=== PATIENT | male | born 1990 | race Native Hawaiian/Other Pacific Islander ===

== ENCOUNTER 2020-07-06 17:00 | Outpatient (REF) | payer MEDICARE, MEDICAID, SELFPAY | END 2020-07-06 17:01 | disposition home or self-care (01) | LOC: HO.LAB 17:00 | PROVIDERS: PCP Internal Medicine; Visit Provider Internal Medicine | DX: Z20.828 Contact with and (suspected) exposure to other viral communicable diseases (principal) | CPT/HCPCS: 36415; 87635 ==

== ENCOUNTER 2023-11-06 16:24 | Outpatient (AMB) | payer MEDICARE, MEDICAID, SELFPAY ==
[2023-11-06 16:28] VITALS: BP 124/70; PULSE 67; O2SAT 99; BMI 25.4
--- NOTE | 2023-11-06 16:28 | A.OFFPC_ITS ---
Vital Signs 11/06/23 16:28 Height 5 ft 11 in Weight 182 lb BMI 25.4 BP 124/70 Blood Pressure Location Lt brachial Position Sitting Pulse 67 Pulse Source Pulse Oximeter Pulse Oximetry (%) 99 Oxygen Delivery Method Room Air Intake Visit Reasons: office visit/ note Gridcap Machine Operator Required: No Perioperative Manager: Not Required per policy Accompanied by: Self / Same As Patient Allergies No Known Allergies Allergy (Verified 11/06/23 16:28) Tobacco use date assessed: 11/06/23 Dental Screening Dental Screen Date: 11/06/23 Did you have a dental visit in the last 12 months?: Yes Did you have a dental problem in the last 6 months where you did not have access to dental care?: No Was dental information given to patient?: Patient has dentist HPI office visit/ note HPI Details 33-year-old male with a history of polys ubstance abuse generalized an xiety disorder coming in for follow-up. Last seen in December 2022. 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 PAtient is asking for a letter that he can drive a car. has anxiety and expresses no harm to himself. [facility] Medical History (Updated 11/06/23 @ 16:54 by Nieves Colon MD) Hirsutism Seborrheic dermatitis Attention deficit disorder Obsessive compulsive disorder Family History Father No problems noted. Mother No problems noted. Brother No problems noted. Brother No problems noted. Sister No problems noted. Sister No problems noted. Social History Housing: Apartment Alcohol intake: former Patient Tobacco Use Status: Never used Tobacco Years Smoked: smokes marijuana e-Cigarette/Vaping Use: Never Used Second Hand Smoke Exposure: No service: No Current occupational status: employed Cognitive needs: No Hearing needs: No Vision needs: No Questionnaire PHQ-9 Over the last 2 weeks, how often have you been bothered by any of the following problems? 1. Little interest or pleasure in doing things: not at all 2. Feeling down, depressed, or hopeless: not at all 3. Trouble falling or staying asleep, or sleeping too much: not at all 4. Feeling tired or having little energy: not at all 5. Poor appetite or overeating: not at all 6. Feeling bad about yourself - or that you are a failure or have let yourself or your family down: not at all 7. Trouble concentrating on things, such as reading the newspaper or watching television: not at all 8. Moving or speaking so slowly that other people could have noticed. Or the opposite - being so fidgety or restless that you have been moving around a lot more than usual: not at all 9. Thoughts that you would be better off or of hurting yourself in some way: not at all Total score: 0 Depression Screening Interpretation: Negative Depression Screening Done: Yes Source: Developed by Drs. Anselmo Church, Jihan Longo, Blu Andrews and colleagues, with an educational teresa from [employer]. Thrive Questionnaire Date Thrive assessed: 11/06/23 I am a: Patient What is your living situation today?: I have a steady place to live Within the past 12 months, did the food you bought not last and you didn't have the money to get more?: Never true Within the past 12 months, did you worry whether your food would run out before you got money to buy more?: Never true Do you have trouble paying for medicines?: No Do you have trouble getting transportation to medical appointments?: No Do you have trouble paying your heating and electricity bill?: No Do you have trouble taking care of your child, family member or friend?: No Do you have trouble with day-to-day activities such as bathing, preparing meals, shopping, managing finances, etc.?: No Are you currently unemployed and looking for a job?: No Are you interested in more education?: No Please select the resources that you would like help with: None THRIVE Score: 0 AUDIT C Alcohol Use Questionnaire (AUDIT-C) 1. How often do you have a drink containing alcohol?: Never 2. How many drinks containing alcohol do you have on a typical day when you are drinking?: 1 or 2 (0) 3. How often do you have six or more drinks on one occasion?: Never Total Score: 0 LAURI-7 AMB Questionnaire LAURI-7 Date LAURI - 7 assessed: 11/06/23 Feeling nervous, anxious, or on edge: 0 = Not at all Not being able to stop or control worryin = Not at all Worrying too much about different things: 0 = Not at all Trouble relaxin = Not at all Being so restless that it is hard to sit still: 0 = Not at all Becoming easily annoyed or irritable: 0 = Not at all Feeling afraid as if something awful might happen: 0 = Not at all Total LAURI-7 score (0-4 normal; 5-9 mild; 10-14 moderate; 15-21 severe): 0 Source: Developed by Drs. Anselmo Church, Jihan Longo, Blu Andrews and colleagues, with an educational teresa from [employer]. Physical exam (Primary Care) Vital Signs: Last Vital Signs Pulse 67 11/06/23 16:28 BP 124/70 11/06/23 16:28 Pulse Ox 99 11/06/23 16:28 Oxygen Delivery Method Room Air 11/06/23 16:28 BMI result Body Mass Index 25.4 Tobacco/Smoking Status: Tobacco use Status Tobacco use date assessed 11/06/23 11/06/23 16:29 Patient Tobacco Use Status Never used Tobacco 11/06/23 16:29 e-Cigarette/Vaping Use Never Used 11/06/23 16:29 PHQ-9: PHQ-9 Score PHQ-9: Total score 0 11/06/23 19:14 Depression Screening Interpretation: Negative Thrive Assessment: Date of Thrive Assessment Date Thrive assessed 11/06/23 11/06/23 16:29 Const General: alert; No acute distress Eyes Conjunctivae: conjunctivae normal Resp Auscultation: clear to auscultation bilaterally Cardio Rate: regular rate Rhythm: regular rhythm GI Inspection: Yes normal to inspection Extrem General: Yes normal to inspection and No edema Assessment and Plan Assessment & Plan (1) Erectile dysfunction: Code(s): N52.9 - Male erectile dysfunction, unspecified Plan: Continue with medication as needed (2) Sebopsoriasis: Code(s): L40.8 - Other psoriasis Plan: Patient follows up with Dermatology and has been placed on ketoconazole cream as well as some steroid cream. (3) Generalized anxiety disorder: Code(s): F41.1 - Generalized anxiety disorder Plan: will do referral Orders: Referrals Psychiatry Referral F41.1 - Generalized anxiety disorder Medications: Refilled Viagra (sildenafil) administer 30 minutes to 4 hours before activity 100 mg PO DAILY PRN 14 tabs 0RF sexual activity NS N52.9 - Male erectile dysfunction, unspecified Coding Level of Care Code Est Pt Level 4 (73593) Diagnoses Erectile dysfunction N52.9 Sebopsoriasis L40.8 Generalized anxiety disorder F41.1
== END 2023-11-06 17:42 | disposition home or self-care (01) ==
PROVIDERS: PCP Internal Medicine; Visit Provider Internal Medicine
DX: N52.9 Male erectile dysfunction, unspecified (principal); L40.8 Other psoriasis; F41.1 Generalized anxiety disorder
CPT/HCPCS: 99214

== ENCOUNTER 2024-09-27 14:30 | Outpatient (AMB) | payer MEDICARE, MEDICAID, SELFPAY ==
[2024-09-27 14:40] VITALS: BP 92/50; PULSE 58; O2SAT 97
--- NOTE | 2024-09-27 14:40 | MHC.PC.OV ---
Vital Signs 09/27/24 14:40 Height 5 ft 11 in BP 92/50 L Blood Pressure Location Lt brachial Position Sitting Pulse 58 Pulse Source Pulse Oximeter Pulse Oximetry (%) 97 Oxygen Delivery Method Room Air Intake Visit Reasons: f/u adhd Abstract Maker Required: No Accompanied by: Self / Same As Patient Allergies No Known Allergies Allergy (Verified 09/27/24 14:41) Tobacco use date assessed: 11/06/23 Dental Screening Dental Screen Date: 11/06/23 HPI f/u adhd HPI Details Patient decline referral for counselling and ADHD evaluation. Ptient in the office asking if I give percocet. NO! Patient states had an altercation with girlfriend and was told might have ADHD and was wanting to come in but discussed with him that I that is the 1st reason why I referred him for psychiatric evaluation but patient declined and does not want to go for any testing. Otherwise wants a refill on the ketoconazole shampoo that was given for the scalp rash. And with the receding hairline would like to have Dermatology evaluation. [facility] Medical History (Updated 09/27/24 @ 15:08 by Nieves Colon MD) Attention deficit disorder Hirsutism Seborrheic dermatitis Obsessive compulsive disorder Family History Father No problems noted. Mother No problems noted. Brother No problems noted. Brother No problems noted. Sister No problems noted. Sister No problems noted. Social History Housing: Apartment Alcohol intake: former Patient Tobacco Use Status: Never used Tobacco Years Smoked: smokes marijuana e-Cigarette/Vaping Use: Never Used Second Hand Smoke Exposure: No service: No Current occupational status: employed Cognitive needs: No Hearing needs: No Vision needs: No Questionnaire PHQ-9 Over the last 2 weeks, how often have you been bothered by any of the following problems? 1. Little interest or pleasure in doing things: not at all 2. Feeling down, depressed, or hopeless: not at all 3. Trouble falling or staying asleep, or sleeping too much: not at all 4. Feeling tired or having little energy: not at all 5. Poor appetite or overeating: not at all 6. Feeling bad about yourself - or that you are a failure or have let yourself or your family down: not at all 7. Trouble concentrating on things, such as reading the newspaper or watching television: not at all 8. Moving or speaking so slowly that other people could have noticed. Or the opposite - being so fidgety or restless that you have been moving around a lot more than usual: not at all 9. Thoughts that you would be better off or of hurting yourself in some way: not at all Total score: 0 Depression Screening Interpretation: Negative Depression Screening Done: Yes 60644 - PHQ-9 Billing: Yes Source: Developed by Drs. Anselmo Church, Jihan Lnogo, Blu Andrews and colleagues, with an educational teresa from [facility]. Thrive Questionnaire Date Thrive assessed: 09/27/24 I am a: Patient What is your living situation today?: I have a steady place to live Within the past 12 months, did the food you bought not last and you didn't have the money to get more?: Never true Within the past 12 months, did you worry whether your food would run out before you got money to buy more?: Never true Do you have trouble paying for medicines?: No Do you have trouble getting transportation to medical appointments?: No Do you have trouble paying your heating and electricity bill?: No Do you have trouble taking care of your child, family member or friend?: No Do you have trouble with day-to-day activities such as bathing, preparing meals, shopping, managing finances, etc.?: No Are you currently unemployed and looking for a job?: No Are you interested in more education?: No Please select the resources that you would like help with: None Currently or been in a relationship where the following occur: No concerns reported THRIVE Score: 0 AUDIT C Alcohol Use Questionnaire (AUDIT-C) 1. How often do you have a drink containing alcohol?: Never 2. How many drinks containing alcohol do you have on a typical day when you are drinking?: 1 or 2 (0) 3. How often do you have six or more drinks on one occasion?: Never Total Score: 0 LAURI-7 AMB Questionnaire LAURI-7 Date LAURI - 7 assessed: 09/27/24 Feeling nervous, anxious, or on edge: 0 = Not at all Not being able to stop or control worryin = Not at all Worrying too much about different things: 0 = Not at all Trouble relaxin = Not at all Being so restless that it is hard to sit still: 0 = Not at all Becoming easily annoyed or irritable: 0 = Not at all Feeling afraid as if something awful might happen: 0 = Not at all Total LAURI-7 score (0-4 normal; 5-9 mild; 10-14 moderate; 15-21 severe): 0 Source: Developed by Drs. Anselmo Church, Jihan Longo, Blu Andrews and colleagues, with an educational teresa from [facility]. LAURI-7 Assessment Billing LAURI-7 Assessment Tool: LAURI-7 Assessment 09271 Physical exam (Primary Care) Vital Signs: Last Vital Signs Pulse 58 09/27/24 14:40 BP 92/50 L 09/27/24 14:40 Pulse Ox 97 09/27/24 14:40 Oxygen Delivery Method Room Air 09/27/24 14:40 Tobacco/Smoking Status: Tobacco use Status Tobacco use date assessed 11/06/23 09/27/24 14:41 Patient Tobacco Use Status Never used Tobacco 09/27/24 14:41 e-Cigarette/Vaping Use Never Used 09/27/24 14:41 PHQ-9: PHQ-9 Score PHQ-9: Total score 0 09/27/24 14:43 Depression Screening Interpretation: Negative Thrive Assessment: Date of Thrive Assessment Date Thrive assessed 09/27/24 09/27/24 14:42 Currently or been in a relationship where the following occur: No concerns reported Const General: alert; No acute distress HENMT Other: scaly rash on the scalpo hair line Eyes Conjunctivae: conjunctivae normal Resp Auscultation: clear to auscultation bilaterally Cardio Rate: regular rate Rhythm: regular rhythm GI Inspection: Yes normal to inspection Extrem General: Yes normal to inspection and No edema Office Procedures Flu Questionnaire Does the patient have a severe egg allergy?: No Does the patient have severe life threatening allergies?: No Does the patient have a fever or illness today?: No Has the patient ever had Guillain-[place] Syndrome?: No Has the patient ever had any past reaction to a flu shot?: No Immunizations Fluarix Triv [id number] (PF) 45 mcg (15 mcg x 3)/0.5 mL IM syringe Performing Provider: Nieves Colon MD Performing Location: [facility] [place] [facility] Documented (not given) by: IRAIDA Polanco on 09/27/24 14:41 Reason Not Given: Patient Refused Coding Level of Care Code Est Pt Level 4 (78140) Diagnoses Generalized anxiety disorder F41.1 Seborrhea L21.9 Hair loss L65.9 Additional Codes LAURI-7 Assessment Billing - LAURI-7 Assessment Tool: LAURI-7 Assessment 86465 ([id number]) PHQ-9 - 21880 - PHQ-9 Billing: Yes ([id number]) Assessment & Plan Assessment & Plan (1) Generalized anxiety disorder: Code(s): F41.1 - Generalized anxiety disorder Category: Medical Plan: Declined referral for counseling (2) Seborrhea: Code(s): L21.9 - Seborrheic dermatitis, unspecified Category: Medical Plan: Ketoconazole shampoo sent (3) Hair loss: Comment: scalp Code(s): L65.9 - Nonscarring hair loss, unspecified Category: Medical Plan: Dermatology referral done Orders: Orders Influenza [id number] Immunization Today Z23 - Encounter for immunization Referrals Dermatology Referral L65.9 - Nonscarring hair loss, unspecified Medications: Refilled ketoconazole 2% 1 appl topical 2XW 120 mL 0RF L21.9 - Seborrheic dermatitis, unspecified ketoconazole 2% 1 appl topical 2XW 120 mL 0RF L21.9 - Seborrheic dermatitis, unspecified
== END 2024-09-27 15:13 | disposition home or self-care (01) ==
PROVIDERS: PCP Internal Medicine; Visit Provider Internal Medicine
DX: F41.1 Generalized anxiety disorder (principal); L21.9 Seborrheic dermatitis, unspecified; L65.9 Nonscarring hair loss, unspecified; Z23 Encounter for immunization

== ENCOUNTER → 2024-09-27 14:30 | Outpatient (BNVA) | payer MEDICARE, MEDICAID, SELFPAY | PROVIDERS: PCP Internal Medicine; Visit Provider Internal Medicine | DX: F41.1 Generalized anxiety disorder (principal); L21.9 Seborrheic dermatitis, unspecified; L65.9 Nonscarring hair loss, unspecified | CPT/HCPCS: 90471; 96127; 99212 ==

== ENCOUNTER 2025-07-07 02:21 | Emergency (ER) | payer MEDICARE, MEDICAID, SELFPAY ==
[2025-07-07 02:30] VITALS: BP 121/80; BP 140/84; PULSE 68; RESP 20; TEMP 36.8; O2SAT 100; BMI 25.9
--- NOTE | 2025-07-07 02:35 | PC.NURSE ---
Ice pack given, pt awaiting to be seen.
--- NOTE | 2025-07-07 03:30 | ED_ITS ---
HPI - General Adult General Chief complaint: Dental/Oral Stated complaint: Toothache Time Seen by Provider: 07/07/25 03:03 Source: patient Limitations: no limitations History of Present Illness ED Provider: Maya Finnegan PA-C HPI narrative: 34-year-old male with a history of polysubstance abuse, anxiety, OCD who presents with dental pain x5 days. Patient is experiencing pain over both right upper and lower last molars. He has not had his wisdom teeth out. He has not seen a dentist. Denies fractured teeth, drainage from either site or a foul taste in his mouth. No fever. Related Data Previous Rx's ?Medication ?Instructions ?Recorded sildenafil 100 mg tablet 100 mg PO DAILY PRN sexual 0 11/05/24 activity #14 tabs ketoconazole 2 % shampoo 1 appl topical 2XW #120 mL 0 06/23/25 penicillin V potassium 500 mg 500 mg PO QID #27 tabs 1 tablet Allergies Allergy/AdvReac Type Severity Reaction Status Date / Time No Known Allergies Allergy Verified 07/07/25 02:33 Review of Systems Review of Systems: Yes all other systems are reviewed and are negative Constitutional: Constitutional: Denies fatigue and Denies fever(s) ENT: Reports dental pain and Denies sore throat Endocrine: Endocrine: Denies fatigue PMFSH Past Medical History Attestation statement: The following information was validated with the patient. Medical History (Updated 07/07/25 @ 03:38 by DUKE Field) Attention deficit disorder Hirsutism Seborrheic dermatitis Obsessive compulsive disorder Family History Family History Father No problems noted. Mother No problems noted. Brother No problems noted. Brother No problems noted. Sister No problems noted. Sister No problems noted. Social History Social History Housing: Apartment Alcohol intake: former Patient Tobacco Use Status: Never used Tobacco Years Smoked: smokes marijuana Smoked in Last 30 Days: No e-Cigarette/Vaping Use: Never Used Second Hand Smoke Exposure: No Use of substances other than those prescribed or required for medical reasons: No Advance Directives: No Advance Directives Information Provided: No Do you have a plan to hurt others: No Plan service: No Current occupational status: employed Cognitive needs: No Hearing needs: No Vision needs: No Physical Exam ED Vital Signs: Vital Signs - 24 hr 07/07/25 02:30 Temperature 98.2 F Pulse Rate 68 Respiratory Rate 20 Blood Pressure 121/80 Pulse Oximetry 100 Oxygen Delivery Method Room Air BMI result Body Mass Index 25.9 Const Other: Alert well-appearing Orientation/consciousness: patient oriented x3 HENMT Other: No trismus no drooling no sublingual fluctuance no swelling inferior to the jawline, the teeth in question, #1 and # 32 appear intact, they are not fractured, no obvious dental emmy, no swelling or redness along the gum tooth margin no purulence from either site Resp Effort & Inspection: normal respiratory effort Cardio Other: Normal peripheral perfusion Skin Other: Warm dry no rash Neuro General: patient oriented x3, gait normal, no focal motor deficits and CN's II- XI intact bilaterally Psych Other: Cooperative Medical Decision Making Medical Decision Making MDM Narrative: 34-year-old male with a history of polysubstance abuse, anxiety, OCD who presents with dental pain x5 days. Patient is experiencing pain over both right upper and lower last molars. He has not had his wisdom teeth out. He has not seen a dentist. Denies fractured teeth, drainage from either site or a foul taste in his mouth. No fever. Problem: Polysubstance abuse, psychiatric illness History: Per patient I have considered the following differential diagnoses: Dental emmy, fractured tooth, dental infection, Shan angina, Plan: Patient's exam was overall unremarkable, he likely needs his wisdom teeth out, he might be developing an infection we will place on antibiotics. I have explained that dental and medical services or separate, he needs to see a dentist we will provide him with a list of outpatient resources. Starting him on penicillin giving ibuprofen. No indication for labs or imaging Differential Diagnosis Differential Diagnoses: The differential diagnosis associated with the presentation includes See medical decision-making Admission/Observation Consideration of admission/observation: Escalation of care including admission/observation considered Not applicable Discharge Plan Discharge Clinical Impression: Toothache Patient Disposition: Home, Self-Care Instructions: Toothache (ED) Additional Instructions: You may be developing a cavity versus an infection. You need to see a dentist, they have specialized x-ray imaging to determine if you have a cavity versus an infection. Call tomorrow to make an appointment. I have provided you with a list of outpatient clinics. Take the penicillin as directed, complete the course of the antibiotic. You can use [id number] ibuprofen 600 mg taken every 6 hours with food for your pain. Prescriptions: New penicillin V potassium 500 mg tablet 500 mg PO QID Qty: 27 0RF No Action sildenafil 100 mg tablet 100 mg PO DAILY PRN (Reason: sexual activity) Qty: 14 6RF Rx Instructions: administer 30 minutes to 4 hours before activity ketoconazole 2 % shampoo 1 appl topical 2XW Qty: 120 0RF Print Language: Ethiopian
--- NOTE | 2025-07-07 03:55 | PC.NURSE ---
medicated per mar, reviewed discharge instructions with pt, pt verbalized understanding, no sign of distress upon discharge.
[2025-07-07 03:57] VITALS: BP 121/80; PULSE 68; RESP 20; TEMP 36.8; O2SAT 100
== END 2025-07-07 03:58 | disposition home or self-care (01) ==
PROVIDERS: Emergency Provider Emergency Medicine; PCP Internal Medicine
DX: K08.89 Other specified disorders of teeth and supporting structures (principal)
CPT/HCPCS: 99283; 99284

== ENCOUNTER 2025-08-16 00:04 | Emergency (ER) | payer MEDICARE, MEDICAID, SELFPAY ==
[2025-08-16 00:07] VITALS: BP 122/78; PULSE 59; O2SAT 98
[2025-08-16 00:08] VITALS: BP 111/61; PULSE 65; RESP 16; TEMP 36.7; O2SAT 99; BMI 25.1
--- NOTE | 2025-08-16 00:25 | ED_ITS ---
HPI - Dental/Oral General Chief complaint: Dental/Oral Stated complaint: TOOTHACHE Time Seen by Provider: 08/16/25 00:18 Source: patient Mode of arrival: ambulatory Limitations: no limitations History of Present Illness ED Provider: Dr. Nicole Mclaughlin HPI Narrative: patient comes to the emergency room complaining of right mandibular pain. Patient states that he has been having intermittent dental pain some several months. Patient states that today the pain got worse after eating chocolate. Patient states that he has not called his dentist yet. Related Data Previous Rx's ?Medication ?Instructions ?Recorded sildenafil 100 mg tablet 100 mg PO DAILY PRN sexual 0 11/05/24 activity #14 tabs ketoconazole 2 % shampoo 1 appl topical 2XW #120 mL 0 06/23/25 penicillin V potassium 500 mg 500 mg PO QID #27 tabs 1 tablet amoxicillin 500 mg tablet 500 mg PO TID 10 days #30 ta bs 08/16/25 ibuprofen 600 mg tablet 600 mg PO Q8H PRN fever or p ain 08/16/25 #30 tabs Allergies Allergy/AdvReac Type Severity Reaction Status Date / Time No Known Allergies Allergy Verified 08/16/25 00:10 Review of Systems Review of Systems: Constitutional : No Weight loss, No Fever, No Chills, No Night Sweats, No Fatigue, No Malaise ENT/Mouth : Complaining of dental pain right mandibular side, No Hearing loss, No Ear Pain, No Nasal Congestion, No Sinus Pain, No Hoarseness, No sore throat, No Rhinorrhea, No Swallowing Difficulty Eyes: No Eye Pain, No Swelling, No Redness, No Foreign Body, No Discharge, No Vision Changes Cardiovascular : No Chest Pain, No SOB, No Dyspnea on Exertion, No Orthopnea, No Edema, No Palpitations Respiratory : No Cough, No Sputum, No Wheezing, No Smoke Exposure, No Dyspnea Gastrointestinal : No Nausea, No Vomiting, No Diarrhea, No Constipation, No abd ominal Pain, No Hematochezia, No Melena Genitourinary : no irregular bleeding, No Dysuria, No Urinary Frequency, No Hematuria, No Urinary Incontinence, No Urgency, No Flank Pain, No Urinary Flow Changes, No Hesitancy Musculoskeletal : No joint pain, No Myalgias, No Joint Swelling Skin : No Skin Lesions, No rash Neuro : No Weakness, No Numbness, No Paresthesias, No Loss of Consciousness, No Dizziness, No Headache Psych : No Anxiety/Panic, No Depression, No SI/HI/AH/VH, No Social Issues, Heme/Lymph: No Bruising, No Bleeding,No Lymphadenopathy Endocrine : No Polyuria, No Polydipsia, No Temperature Intolerance [facility] Past Medical History Medical History Attention deficit disorder Hirsutism Seborrheic dermatitis Obsessive compulsive disorder Family History Family History Father No problems noted. Mother No problems noted. Brother No problems noted. Brother No problems noted. Sister No problems noted. Sister No problems noted. Social History Social History Housing: Apartment Alcohol intake: former Patient Tobacco Use Status: Never used Tobacco Years Smoked: smokes marijuana e-Cigarette/Vaping Use: Never Used Second Hand Smoke Exposure: No service: No Current occupational status: employed Cognitive needs: No Hearing needs: No Vision needs: No Physical Exam Exam: Exam: Appearance: Alert. Oriented X3. No acute distress. Eyes: Pupils equal, round and reactive to light. ENT: Pharynx normal. poor dentition, no obvious dental abscess that could be drained Neck: Normal inspection. Neck supple. No lymph nodes noted. No crepitus CVS: Normal heart rate and rhythm. Pulses normal. Normal S1 and S2 Respiratory: No respiratory distress. Breath sounds normal. No Wheezing. No rales Abdomen: Soft and nontender. No rigidity. No distention. Skin: Skin warm and dry. Normal skin color. Normal skin turgor. Extremities: No lower extremity edema. No Lacerations. No Rash Neuro: Oriented X 3. No motor deficit. No sensory deficit. Moving all extremities. No slurred speech. CN 2 through 12 grossly intact Psych: calm, cooperative, normal affect Vital Signs: Vital Signs: Last Vital Signs Temp 98.0 F 08/16/25 00:08 Pulse 65 08/16/25 00:08 Resp 16 08/16/25 00:08 BP 111/61 08/16/25 00:08 Pulse Ox 99 08/16/25 00:08 O2 Del Method Room Air 08/16/25 00:08 BMI result Body Mass Index 25.1 Medical Decision Making Medical Decision Making [facility] Narrative: I discussed the physical exam with the patient. Patient is aware that he needs to be seen by the dentist, antibiotics and pain medication is not going to cure the underlying cause of the patient's dental pain. Patient was given the 1st dose of ibuprofen and amoxicillin in the emergency room. Patient declined IM pain medication. Discharge Plan Discharge Clinical Impression: Toothache Patient Disposition: Home, Self-Care Additional Instructions: Please follow-up with your dentist and primary care physician tomorrow. If you have any worsening or new symptoms, please return to the emergency room or call 911 Prescriptions: New ibuprofen 600 mg tablet 600 mg PO Q8H PRN (Reason: fever or pain) Qty: 30 0RF amoxicillin 500 mg tablet 500 mg PO TID 10 Days Qty: 30 0RF No Action sildenafil 100 mg tablet 100 mg PO DAILY PRN (Reason: sexual activity) Qty: 14 6RF Rx Instructions: administer 30 minutes to 4 hours before activity ketoconazole 2 % shampoo 1 appl topical 2XW Qty: 120 0RF penicillin V potassium 500 mg tablet 500 mg PO QID Qty: 27 0RF Print Language: [place]
[2025-08-16 00:54] VITALS: BP 111/61; PULSE 65; RESP 16; TEMP 36.7; O2SAT 99
== END 2025-08-16 00:55 | disposition home or self-care (01) ==
PROVIDERS: Emergency Provider Emergency Medicine; PCP Internal Medicine
DX: K08.89 Other specified disorders of teeth and supporting structures (principal)
CPT/HCPCS: 99283